=== PATIENT | male | born 1935 | race Caucasian/White ===

== ENCOUNTER 2017-05-13 09:04 | Inpatient (IN) | payer OTHER, MEDICARE ==
[~2017-05-13] VITALS: Ht 165.1 cm; Wt 102.5 kg
[~2017-05-13 09:04] MED LIST: ADVAIR 250/501 DISK IH; ASCORBIC ACID500 M3 PO; ASPIR-LOW81 MG PO; ATENOLOL50 MG PO; ATORVASTATIN CA40 MG PO; AUGMENTIN875 MG PO; CALCITRIOL0.25 MCG PO; CARDIZEM CD,CA180 MG PO; CENTRUM SILVER1 EAC3 PO; CILOSTAZOL100 MG PO; CINNAMON500 MG PO; COZAAR25 MG PO; COZAAR50 MG PO; DAPSONE100 MG PO; DUONEB 2.5-0.5 M3 ML PEP; EFUDEX 5% CREAM25 GM TP; ELIQUIS2.5 MG PO; FISH OIL 1,0001 EA10 PO; FISH OIL 1,0001 EAC7 PO; FLOMAX0.4 MG PO; FUROSEMIDE40 MG PO; GARLIC500 M1 PO; GLUCOTROL5 MG PO; JANUVIA25 MG PO; JENTADUETO 2.51 EAC2 PO; LANTUS 3 M100 UNITS1 SC; LASIX40 MG PO; LIPITOR40 MG PO; LOSARTAN POTAS100 MG PO; LOVENOX60 MG/0.6 SC; MAGNESIUM OXID500 MG PO; METOPROLOL SUCC50 MG PO; MICROZIDE12.5 M1 PO; NORVASC5 MG PO; NYSTATIN-TRIAMC15 GM TP; ODORLESS GARLI500 MG PO; OMEPRAZOLE40 M1 PO; PREDNISONE10 MG PO; PRESERVISIO1 CAPSULE PO; SPIRIVA RESPIMAT4 GM IH; TAMSULOSIN HCL0.4 MG PO; TAZTIA XT360 MG PO; TENORMIN50 MG PO; VENTOLIN HFA18 GM IH; VITAMIN D2000 UNIT PO; VITAMIN E400 UNIT PO
[2017-05-13 10:49] LABS: APPEARANCE CLEAR ((CLEAR)); BILIRUBIN NEGATIVE; BLOOD NEGATIVE; COLOR STRAW ((YELLOW)); GLUCOSE (STRIP) NEGATIVE; KETONES NEGATIVE; LEUKOCYTES NEGATIVE; NITRITE NEGATIVE; PROTEIN (STRIP) NEGATIVE; SPECIFIC GRAVITY 1.006 (1.000-1.030); UCUL ADDED? NO; UROBILINOGEN 0.2 MG/DL (0.2-1.0)
[2017-05-13 10:52] LABS: BASOPHIL (%) 0.3 % (0-1); EOSINOPHIL (%) 3.4 % (0-5); EOSINOPHIL COUNT 0.3 K/uL (0-0.3); HEMOGLOBIN 12.2 G/DL (12.5-16.6); IMMATURE GRANULOCYTE (%) 0.3 % (0.0-0.7); LYMPHOCYTE (%) 12.7 % (15-42); LYMPHOCYTE COUNT 1.1 K/uL (1.0-2.8); MCH 30.7 PG (29.0-34.0); MCV 93.2 FL (86-99); MONOCYTE (%) 9.3 % (3-12); MONOCYTE COUNT 0.8 K/uL (0-0.8); NEUTROPHIL COUNT 6.6 K/uL (1.8-6.4); PLATELET COUNT 176 K/uL (156-360); RBC DIS.WIDTH-SD 47.8 % (39-53); RED BLOOD COUNT 3.97 M/uL (4.00-5.50); WHITE BLOOD COUNT 8.9 K/uL (4.1-10.2)
[2017-05-13 11:00] LABS: INTER. NORMALIZED RATIO 1.4
[2017-05-13 11:02] LABS: ALBUMIN 3.4 g/dL (3.2-4.8); CHLORIDE 107 mEq/L (99-109); POTASSIUM 4.1 mEq/L (3.7-5.4); PTT 41.4 SEC (25-37)
[2017-05-13 11:03] LABS: SODIUM 139 mEq/L (136-147)
[2017-05-13 11:05] LABS: GLUCOSE 192 mg/dL (70-99); TOTAL PROTEIN 6.2 g/dL (6.4-8.3)
[2017-05-13 11:07] LABS: TOTAL BILIRUBIN 1.1 mg/dL (0.0-1.0)
[2017-05-13 11:08] LABS: ALKALINE PHOSPHATASE 79 IU/L (3-129); CREATININE 1.9 mg/dL (0.6-1.3); GFR ESTIMATE (CALCULATED) 36 mL/min/ (58.99-99999)
[2017-05-13 11:10] LABS: AST (GOT) 15 IU/L (2-34); UREA NITROGEN (BUN) 27 mg/dL (9-23)
[2017-05-13 11:11] LABS: ALT (GPT) 12 IU/L (3-49)
[2017-05-13 11:12] LABS: LIPASE 14 U/L (1.0-51.0)
[2017-05-13] MEDS ORDERED: LANTUS 3 M100 UNITS1 SC (14:07)
[2017-05-13] MEDS ORDERED: LOW DOSE ASPIRI81 M1 PO (14:11)
[2017-05-13 16:17] VITALS: BP 163/74
[2017-05-13 16:19] VITALS: BP 163/74
[2017-05-13 19:18] VITALS: BP 160/72
[2017-05-13 23:34] VITALS: BP 158/70
[2017-05-14 03:35] VITALS: BP 169/79
[2017-05-14 06:05] LABS: HEMATOCRIT 37.1 % (38.0-50.0); MCH 30.7 PG (29.0-34.0); MCHC 32.3 G/DL (30.0-36.0); MCV 94.9 FL (86-99); PLATELET COUNT 171 K/uL (156-360); RBC DIS.WIDTH-CV 14.1 % (11.8-14.6); RBC DIS.WIDTH-SD 49.3 % (39-53); RED BLOOD COUNT 3.91 M/uL (4.00-5.50); WHITE BLOOD COUNT 8.6 K/uL (4.1-10.2)
[2017-05-14 06:15] VITALS: BP 168/79
[2017-05-14 06:27] LABS: CHLORIDE 109 MEQ/L (99-109); CREATININE 1.7 MG/DL (0.6-1.3); GFR ESTIMATE (CALCULATED) 41 mL/min/ (58.99-99999); POTASSIUM 4.1 MEQ/L (3.7-5.4); SODIUM 144 MEQ/L (136-147); UREA NITROGEN (BUN) 24 mg/dL (9-23)
[2017-05-14 06:31] LABS: GLUCOSE 77 mg/dL (70-99)
[2017-05-14] MEDS ORDERED: LOSARTAN POTASS25 MG PO (12:05)
[2017-05-14] MEDS ORDERED: FUROSEMIDE40 MG PO (12:06)
[2017-05-14] MEDS ORDERED: TAMSULOSIN HCL0.4 MG PO (12:06)
[2017-05-14] MEDS ORDERED: CALCITRIOL0.25 MCG PO (12:06)
[2017-05-14] MEDS ORDERED: TAZTIA XT360 MG PO (12:07)
[2017-05-14] MEDS ORDERED: ATORVASTATIN CA40 MG PO (12:07)
[2017-05-14] MEDS ORDERED: LOPRESSOR50 MG PO (12:07)
[2017-05-14 12:30] VITALS: BP 160/78
[2017-05-14 15:00] VITALS: BP 150/76
[2017-05-14 19:10] VITALS: BP 185/92
[2017-05-14 23:00] VITALS: BP 182/88
[2017-05-15] VITALS (7 sets, daily range): BP systolic 171–199; BP diastolic 77–95
[2017-05-15 10:33] LABS: BASOPHIL (%) 0.5 % (0-1); EOSINOPHIL (%) 3.4 % (0-5); EOSINOPHIL COUNT 0.3 K/uL (0-0.3); HEMATOCRIT 38.9 % (38.0-50.0); HEMOGLOBIN 12.9 G/DL (12.5-16.6); IMMATURE GRANULOCYTE (%) 0.4 % (0.0-0.7); LYMPHOCYTE (%) 15.1 % (15-42); LYMPHOCYTE COUNT 1.2 K/uL (1.0-2.8); MCH 31.4 PG (29.0-34.0); MCHC 33.2 G/DL (30.0-36.0); MCV 94.6 FL (86-99); MONOCYTE (%) 10.6 % (3-12); MONOCYTE COUNT 0.8 K/uL (0-0.8); NEUTROPHIL COUNT 5.5 K/uL (1.8-6.4); PLATELET COUNT 186 K/uL (156-360); RBC DIS.WIDTH-CV 13.8 % (11.8-14.6); RBC DIS.WIDTH-SD 48.4 % (39-53); RED BLOOD COUNT 4.11 M/uL (4.00-5.50); WHITE BLOOD COUNT 7.8 K/uL (4.1-10.2)
[2017-05-15 11:53] LABS: ALBUMIN 3.6 G/DL (3.2-4.8); ALKALINE PHOSPHATASE 74 IU/L (3-129); ALT (GPT) 11 IU/L (3-49); AST (GOT) 14 IU/L (2-34); CHLORIDE 106 MEQ/L (99-109); CREATININE 1.6 MG/DL (0.6-1.3); GFR ESTIMATE (CALCULATED) 44 mL/min/ (58.99-99999); POTASSIUM 4.3 MEQ/L (3.7-5.4); SODIUM 141 MEQ/L (136-147); TOTAL PROTEIN 6.2 G/DL (6.4-8.3); UREA NITROGEN (BUN) 25 mg/dL (9-23)
[2017-05-15 11:54] LABS: GLUCOSE 239 mg/dL (70-99)
[2017-05-16 03:00] VITALS: BP 178/89
[2017-05-16 06:52] LABS: BASOPHIL (%) 0.4 % (0-1); EOSINOPHIL COUNT 0.3 K/uL (0-0.3); HEMATOCRIT 38.9 % (38.0-50.0); HEMOGLOBIN 12.7 G/DL (12.5-16.6); IMMATURE GRANULOCYTE (%) 0.5 % (0.0-0.7); LYMPHOCYTE (%) 16.9 % (15-42); LYMPHOCYTE COUNT 1.6 K/uL (1.0-2.8); MCH 30.4 PG (29.0-34.0); MCHC 32.6 G/DL (30.0-36.0); MCV 93.1 FL (86-99); MONOCYTE (%) 10.3 % (3-12); NEUTROPHIL (%) 68.9 % (45-76); NEUTROPHIL COUNT 6.3 K/uL (1.8-6.4); PLATELET COUNT 196 K/uL (156-360); RBC DIS.WIDTH-CV 13.9 % (11.8-14.6); RBC DIS.WIDTH-SD 47.5 % (39-53); RED BLOOD COUNT 4.18 M/uL (4.00-5.50); WHITE BLOOD COUNT 9.2 K/uL (4.1-10.2)
[2017-05-16 07:09] VITALS: BP 169/86
[2017-05-16 07:21] LABS: ALBUMIN 3.6 G/DL (3.2-4.8); ALKALINE PHOSPHATASE 75 IU/L (3-129); ALT (GPT) 10 IU/L (3-49); AST (GOT) 14 IU/L (2-34); CHLORIDE 105 MEQ/L (99-109); CREATININE 1.5 MG/DL (0.6-1.3); GFR ESTIMATE (CALCULATED) 48 mL/min/ (58.99-99999); GLUCOSE 173 mg/dL (70-99); POTASSIUM 4.1 MEQ/L (3.7-5.4); SODIUM 142 MEQ/L (136-147); TOTAL BILIRUBIN 0.9 MG/DL (0.0-1.0); UREA NITROGEN (BUN) 25 mg/dL (9-23)
[2017-05-16 11:57] VITALS: BP 152/76
[2017-05-16 19:51] VITALS: BP 125/61
[2017-05-16 23:36] VITALS: BP 166/87
[2017-05-17 03:58] VITALS: BP 146/66
[2017-05-17 07:21] VITALS: BP 185/84
[2017-05-17] MEDS ORDERED: LOSARTAN POTASS50 MG PO (07:22)
[2017-05-17] MEDS ORDERED: LOPRESSOR100 M1 PO (07:22)
[2017-05-17] MEDS ORDERED: DOXYCYCLINE HY100 M3 PO (07:22)
[2017-05-17 11:18] VITALS: BP 130/86
== END 2017-05-17 14:17 | disposition home or self-care (01) | DRG 194 ==
LOC: EME 09:04 → EDOF 14:39 → 2EAST 14:39 → ENRESERV 14:41 → 2EAST 16:09
PROVIDERS: Emergency Medicine; Internal Medicine; Nurse Practitioner Adult Health
DX: J15.9 Unspecified bacterial pneumonia (principal); R04.2 Hemoptysis; J90 Pleural effusion, not elsewhere classified; R09.02 Hypoxemia; N18.3 Chronic kidney disease, stage 3 (moderate); E11.22 Type 2 diabetes mellitus with diabetic chronic kidney disease; E78.5 Hyperlipidemia, unspecified; I48.2 Chronic atrial fibrillation; K21.9 Gastro-esophageal reflux disease without esophagitis; I27.20 Pulmonary hypertension, unspecified; I12.9 Hypertensive chronic kidney disease with stage 1 through stage 4 chronic kidney disease, or unspecified chronic kidney disease; E11.21 Type 2 diabetes mellitus with diabetic nephropathy; R79.1 Abnormal coagulation profile; T45.515A Adverse effect of anticoagulants, initial encounter; G47.33 Obstructive sleep apnea (adult) (pediatric); E66.9 Obesity, unspecified; R59.0 Localized enlarged lymph nodes; M19.90 Unspecified osteoarthritis, unspecified site; Z90.49 Acquired absence of other specified parts of digestive tract; Z87.891 Personal history of nicotine dependence; Z86.73 Personal history of transient ischemic attack (TIA), and cerebral infarction without residual deficits; Z79.01 Long term (current) use of anticoagulants; Z68.37 Body mass index [BMI] 37.0-37.9, adult; Z79.84 Long term (current) use of oral hypoglycemic drugs
CPT/HCPCS: 71020; 71275; 80048; 80053; 81003; 82948; 83690; 85025; 85027; 85379; 85610; 85730; 87040; 94799; 99202; 99281; 99285; J0456; J0696; J1815; J7030; J7050; S0028

== ENCOUNTER 2017-06-17 11:49 | Inpatient (IN) | payer OTHER, MEDICARE ==
[~2017-06-17] VITALS: Ht 165.1 cm; Wt 98.9 kg
[~2017-06-17 11:49] MED LIST changes: +DOXYCYCLINE HY100 M3 PO; +LOPRESSOR100 M1 PO; +LOPRESSOR50 MG PO; +LOSARTAN POTASS25 MG PO; +LOSARTAN POTASS50 MG PO; +LOW DOSE ASPIRI81 M1 PO; -VITAMIN D2000 UNIT PO; +VITAMIN D31000 UNI2 PO
[2017-06-17 12:50] LABS: HEMATOCRIT 38.2 % (38.0-50.0); HEMOGLOBIN 12.5 G/DL (12.5-16.6); MCH 30.5 PG (29.0-34.0); MCHC 32.7 G/DL (30.0-36.0); MCV 93.2 FL (86-99); PLATELET COUNT 208 K/uL (156-360); RBC DIS.WIDTH-CV 14.2 % (11.8-14.6); RBC DIS.WIDTH-SD 48.1 % (39-53); WHITE BLOOD COUNT 9.1 K/uL (4.1-10.2)
[2017-06-17 13:02] LABS: CHLORIDE 111 mEq/L (99-109); POTASSIUM 4.7 mEq/L (3.7-5.4); SODIUM 141 mEq/L (136-147)
[2017-06-17 13:04] LABS: GLUCOSE 165 mg/dL (70-99)
[2017-06-17 13:08] LABS: CREATININE 1.8 mg/dL (0.6-1.3); GFR ESTIMATE (CALCULATED) 39 mL/min/ (58.99-99999)
[2017-06-17 13:09] LABS: UREA NITROGEN (BUN) 23 mg/dL (9-23)
[2017-06-17 16:04] LABS: INTER. NORMALIZED RATIO 1.3
[2017-06-17] MEDS ORDERED: CYCLOBENZAPRINE10 MG PO (20:30)
[2017-06-17] MEDS ORDERED: PRESERVISION A1 EAC2 PO (20:50)
[2017-06-17 22:06] VITALS: BP 181/88
[2017-06-18 00:37] VITALS: BP 132/71
[2017-06-18 03:33] VITALS: BP 151/67
[2017-06-18 05:51] LABS: HEMATOCRIT 40.2 % (38.0-50.0); HEMOGLOBIN 12.9 G/DL (12.5-16.6); MCH 29.5 PG (29.0-34.0); MCHC 32.1 G/DL (30.0-36.0); MCV 91.8 FL (86-99); PLATELET COUNT 204 K/uL (156-360); RBC DIS.WIDTH-CV 13.9 % (11.8-14.6); RBC DIS.WIDTH-SD 47.5 % (39-53); RED BLOOD COUNT 4.38 M/uL (4.00-5.50); WHITE BLOOD COUNT 5.7 K/uL (4.1-10.2)
[2017-06-18 06:27] LABS: CHLORIDE 105 MEQ/L (99-109); CREATININE 1.5 MG/DL (0.6-1.3); GFR ESTIMATE (CALCULATED) 48 mL/min/ (58.99-99999); GLUCOSE 271 mg/dL (70-99); POTASSIUM 4.3 MEQ/L (3.7-5.4); SODIUM 140 MEQ/L (136-147); UREA NITROGEN (BUN) 20 mg/dL (9-23)
[2017-06-18 09:11] VITALS: BP 131/100
[2017-06-18 12:12] VITALS: BP 174/84
[2017-06-18 15:59] VITALS: BP 111/56
[2017-06-18 20:00] VITALS: BP 127/59
[2017-06-19 00:26] VITALS: BP 151/65
[2017-06-19 07:14] VITALS: BP 172/84
[2017-06-19 12:01] VITALS: BP 168/74
[2017-06-19 16:07] VITALS: BP 123/76
[2017-06-19 19:30] VITALS: BP 139/83
[2017-06-20 00:21] VITALS: BP 136/87
[2017-06-20 07:00] VITALS: BP 197/94
[2017-06-20 08:37] VITALS: BP 178/80
[2017-06-20 11:25] VITALS: BP 158/80
[2017-06-20] MEDS ORDERED: PREDNISONE10 MG PO ×2 (14:31→14:37)
[2017-06-20] MEDS ORDERED: AUGMENTIN875 MG PO (14:31)
== END 2017-06-20 15:45 | disposition home or self-care (01) | DRG 194 ==
LOC: EME 11:49 → EDOF 20:51 → ENRESERV 20:52 → 5WEST 21:48
PROVIDERS: Hospitalist; Nurse Practitioner Adult Health
DX: J18.9 Pneumonia, unspecified organism (principal); J44.0 Chronic obstructive pulmonary disease with (acute) lower respiratory infection; J20.9 Acute bronchitis, unspecified; R04.2 Hemoptysis; I48.2 Chronic atrial fibrillation; I12.9 Hypertensive chronic kidney disease with stage 1 through stage 4 chronic kidney disease, or unspecified chronic kidney disease; N18.3 Chronic kidney disease, stage 3 (moderate); E11.22 Type 2 diabetes mellitus with diabetic chronic kidney disease; I27.20 Pulmonary hypertension, unspecified; E78.5 Hyperlipidemia, unspecified; K21.9 Gastro-esophageal reflux disease without esophagitis; K80.20 Calculus of gallbladder without cholecystitis without obstruction; M19.90 Unspecified osteoarthritis, unspecified site; E66.9 Obesity, unspecified; Z68.36 Body mass index [BMI] 36.0-36.9, adult; Z87.891 Personal history of nicotine dependence; Z79.4 Long term (current) use of insulin; Z79.01 Long term (current) use of anticoagulants; Z79.82 Long term (current) use of aspirin; Z86.73 Personal history of transient ischemic attack (TIA), and cerebral infarction without residual deficits; Z87.01 Personal history of pneumonia (recurrent); Z85.828 Personal history of other malignant neoplasm of skin; Z90.49 Acquired absence of other specified parts of digestive tract
CPT/HCPCS: 71045; 71046; 71275; 80048; 82948; 83605; 85027; 85610; 85730; 87040; 87449; 93005; 94640; 94640 76; 94799; 99202; 99281; 99285; G0378; J0295; J0360; J1815; J1940; J1956; J2930; J7040; J7050; J7512

== ENCOUNTER 2017-11-01 10:07 | Emergency (ER) | payer OTHER, MEDICARE ==
[~2017-11-01] VITALS: Ht 170.2 cm; Wt 101.4 kg
[~2017-11-01 10:07] MED LIST changes: +CYCLOBENZAPRINE10 MG PO; +PRESERVISION A1 EAC2 PO
[2017-11-01] MEDS ORDERED: NORCO 5/3251 TABLET PO (12:37)
[2017-11-01] MEDS ORDERED: FLEXERIL5 MG PO (12:44)
[2017-11-01 12:55] VITALS: BP 127/76
== END 2017-11-01 13:07 | disposition home or self-care (01) ==
LOC: EME 10:07
DX: M54.5 Low back pain (principal); E11.9 Type 2 diabetes mellitus without complications; Z79.4 Long term (current) use of insulin; J44.9 Chronic obstructive pulmonary disease, unspecified; E78.5 Hyperlipidemia, unspecified; I10 Essential (primary) hypertension; K21.9 Gastro-esophageal reflux disease without esophagitis; Z85.828 Personal history of other malignant neoplasm of skin; Z87.891 Personal history of nicotine dependence
CPT/HCPCS: 72100; 99281; 99283